=== PATIENT | female | born 1995 | race Two or more races ===

== ENCOUNTER 2018-08-18 13:30 | Emergency (ER) | END 2018-08-18 14:12 | disposition home or self-care (01) | DX: Z48.03 Encounter for change or removal of drains (principal) ==

== ENCOUNTER 2018-09-18 13:47 | Emergency (ER) | payer OTHER ==
[~2018-09-18] VITALS: Ht 157.5 cm; Wt 59.0 kg
[2018-09-18] MEDS ORDERED: SULFACETAMIDE SOD 10% OPHT DR 15 ML BOTTLE ONE (14:07)
[2018-09-18] MEDS ORDERED: SULFACETAMIDE SOD 10% OPHT DR 15 ML BOTTLE OP ONE (14:15)
[2018-09-18 14:30] VITALS: BP 115/77
--- NOTE | 2018-09-18 14:31 | NUR ---
Patient discharged to home in stable conditon. Written and verbal after care instructions given. Patient verbalizes understanding of instructions.
== END 2018-09-18 14:31 | disposition home or self-care (01) ==
LOC: ER 13:47
DX: H10.9 Unspecified conjunctivitis (principal)
CPT/HCPCS: A4663

== ENCOUNTER 2018-11-05 04:20 | Emergency (ER) | payer OTHER ==
[~2018-11-05] VITALS: Ht 157.5 cm; Wt 59.0 kg
[2018-11-05] MEDS ORDERED: ONDANSETRON 4 MG/2 ML VIAL IV ONE (04:30)
[2018-11-05] MEDS ORDERED: IV NORMAL SALINE 1000 ML BAG IV ONE ×2 (04:30)
--- NOTE | 2018-11-05 04:30 | NUR ---
Patient bib boyfriend for c/o alcohol intoxication. Respiration even and unlabored, no sob. No cardiovascular distress noted, all pulses palpable. Patient in bed at lowest position, side rails up x2, call light within reach. Fall precautions implemented per protocol.
[2018-11-05] MEDS ORDERED: ONDANSETRON 4 MG/2 ML VIAL ONE (04:41)
[2018-11-05 04:46] LABS: BASOPHILS # (AUTO) 0.1 K/uL (0.0-8.0); BASOPHILS % (AUTO) 0.6 % (0.0-2.0); EOSINOPHILS % (AUTO) 0.3 % (0.0-7.0); HEMATOCRIT 39.3 % (31.2-41.9); LYMPHOCYTES # (AUTO) 1.8 K/uL (20.0-40.0); MEAN CORPUSCULAR HEMOGLOBIN 30.6 uug (24.7-32.8); MEAN CORPUSCULAR HGB CONC 33 g/dL (32.3-35.6); MEAN CORPUSCULAR VOLUME 92.8 fL (75.5-95.3); MONOCYTES # (AUTO) 0.3 K/uL (2.0-10.0); MONOCYTES % (AUTO) 2.9 % (0.0-11.0); NEUTROPHILS # (AUTO) 7.2 K/uL (1.8-8.9); NEUTROPHILS % (AUTO) 77.2 % (38.5-71.5); PLATELET COUNT (AUTO) 279 K/uL (179-408); RED BLOOD CELL COUNT(AUTO) 4.24 MIL/uL (3.63-4.92); WHITE BLOOD COUNT (AUTO) 9.3 K/uL (3.8-11.8)
[2018-11-05 04:52] LABS: CREATININE 0.7 mg/dL (0.6-1.3); POTASSIUM 3.8 mmol/L (3.5-5.1)
[2018-11-05 04:58] LABS: BILIRUBIN,DIRECT 0.1 mg/dL (0.0-0.2); BILIRUBIN,TOTAL 0.2 mg/dL (0.2-1.0); TOTAL PROTEIN, SERUM 8.3 g/dL (6.4-8.2)
--- NOTE | 2018-11-05 05:15 | NUR ---
Patient in bed asleep, IVfluids infusing well. Boyfriend by bedside, NAD.
--- NOTE | 2018-11-05 07:18 | NUR ---
Patient ambulated to restroom with steady gait with no distress noted. Patient and boyfriend requesting to be discharged. Patient able to tolerate PO intake with no N/V
--- NOTE | 2018-11-05 07:20 | NUR ---
IV removed. Catheter intact and site benign. Pressure and 4x4 gauze applied to site. No bleeding noted.
--- NOTE | 2018-11-05 07:23 | NUR ---
Patient discharged to home in stable conditon with boyfriend taking patient home. Written and verbal after care instructions given. Patient/boyfriend verbalizes understanding of instructions.
[2018-11-05 07:27] VITALS: BP 115/68
== END 2018-11-05 07:28 | disposition home or self-care (01) ==
LOC: ER 04:22
DX: F10.129 Alcohol abuse with intoxication, unspecified (principal); E86.0 Dehydration; Y90.8 Blood alcohol level of 240 mg/100 ml or more
CPT/HCPCS: 36415; 80048; 80076; 82962; 83690; 84702; 85025; 96361; 96374; 99283; G0480; J2405; A4663; J7030